=== PATIENT | male | born 1970 | race Caucasian/White ===

== ENCOUNTER 2016-10-08 21:28 | Emergency (ER) | payer OTHER ==
[~2016-10-08] VITALS: Ht 198.1 cm; Wt 120.4 kg
[~2016-10-08 21:28] MED LIST: ALBUAER19 INH; ASPI325T39 PO; INSDGI SC; KLN1 PO; LPT10 PO; NAPR1TAB9 PO; PARO1TAB27 PO; PRLSR20 PO; TIOTCAP INH
[2016-10-08 21:37] VITALS: TEMP 36.7; Ht 198.1 cm; Wt 120.4 kg
[2016-10-08] MEDS ORDERED: VNTHFA/IN INH (22:08)
[2016-10-08] MEDS ORDERED: LPT/40 PO (22:08)
[2016-10-08] MEDS ORDERED: SPRIN/30 INH (22:08)
[2016-10-08] MEDS ORDERED: INSDGIPEN SC (22:08)
[2016-10-08] MEDS ORDERED: CLON0.5T3 PO (22:08)
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
[2016-10-08 23:31] VITALS: BP 141/79; PULSE 92; O2SAT 96
== END 2016-10-08 23:32 | disposition home or self-care (01) ==
LOC: C.EDB 21:28 → C.EDD 23:32
DX: S09.90XA Unspecified injury of head, initial encounter (principal); S16.1XXA Strain of muscle, fascia and tendon at neck level, initial encounter; V89.2XXA Person injured in unspecified motor-vehicle accident, traffic, initial encounter; I10 Essential (primary) hypertension; J43.9 Emphysema, unspecified; Z79.4 Long term (current) use of insulin; Z79.899 Other long term (current) drug therapy